=== PATIENT | female | born 1970 | race Caucasian/White ===

== ENCOUNTER 2017-05-20 15:30 | Emergency (ER) | payer MEDICARE, OTHER ==
[~2017-05-20] VITALS: Ht 165.1 cm; Wt 66.0 kg
[~2017-05-20 15:30] MED LIST: DEPA250T PO; LEXA5TAB PO; PHEN20S PO; REME15TA PO; [UNRECOGNIZED DRUG - OTHER]
[2017-05-20 15:51] VITALS: BP 138/71; PULSE 79; RESP 16; TEMP 99.2; O2SAT 98
[2017-05-20] MEDS ORDERED: CARB200T PO ×2 (17:14)
--- NOTE | 2017-05-20 17:14 | PD ---
HPI Chief Complaint: Skin Problem Time Seen by Provider: 17:06 Travel History International Travel<30 days: No Contact w/Intl Traveler<30days: No Traveled to known affect area: No History of Present Illness HPI Patient is a 46-year-old female presents emergency department for evaluation of left eye swelling. Minimal itching. No changes in vision. Patient does have a history of antiphospholipid syndrome and is on anticoagulation for that. Denies any sick contacts. Is on total disability and does not work. No fevers no nausea no vomiting no painful eye movements. Symptoms started this morning, mild, associated with swelling of the face. No alleviating or exacerbating factors. 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) Deep Vein Thrombosis: Yes (RT LEG 2 YRS AGO) Musculoskeletal: Yes (HAND CONDITION; 2o TO PHENOBARBITAL PER ) Seizures: Yes (SINCE CHILDHOOD, PROBABLY 2O TO INJURY) ?: Not LMP: 05/07/17 Tubal Ligation: Yes Past Surgical History Neurologic Surgery: Yes (4 YRS AGO REMOVED PART OF RT FRONTAL LOBE) Social History Alcohol Use: No Tobacco Use: No Substance Use: No Allergies-Medications (Allergen,Severity, Reaction): Coded Allergies: levetiracetam (Unverified Allergy, Unknown, 05/20/17) Uncoded Allergies: ANTIHISTAMINES (Adverse Reaction, Unknown, CANT MIX WITH OTHER MEDS, ) Reported Meds & Prescriptions Reported Meds & Active Scripts Active Ktlnqmuf-Jlvjtmreug-Awylbhxfs Opth Oint (Neomycin/Polymyxin/Bacitracin) 3.5 Gm Oint 1 Applic EACH EYE Q4H Clindamycin (Clindamycin HCl) 300 Mg Cap 300 Mg PO Q6H 10 Days Reported [Hemp Oil] 1 Applic TD BID Klonopin (Clonazepam) 2 Mg Tab 1.5 Mg PO HS Coumadin (Warfarin) 10 Mg Tab 10 Mg PO SUN,TUE,QAMAR Coumadin (Warfarin) 7.5 Mg Tab 7.5 Mg PO MO,WE,FR,SA Vimpat (Lacosamide) 200 Mg Tab 200 Mg PO BID Carbamazepine 200 Mg Tab 100 Mg PO DAILY Carbamazepine 200 Mg Tab 200 Mg PO BID Review of Systems Except as stated in HPI: all other systems reviewed are Neg Physical Exam Narrative GENERAL: Well-nourished, well-developed patient. Patient appears well and nontoxic. SKIN: Focused skin assessment warm/dry. HEAD: Normocephalic. EYES: No scleral icterus. There is some injection of the palpebral conjunctiva on the left. None on the right., Sclerae white. Extra movements are intact and nonpainful. Minimal cellulitis overlying the maxilla. No abscess. NECK: Supple, trachea midline. No JVD or lymphadenopathy. CARDIOVASCULAR: Regular rate and rhythm without murmurs, gallops, or rubs. RESPIRATORY: Breath sounds equal bilaterally. No accessory muscle use. GASTROINTESTINAL: Abdomen soft, non-tender, nondistended. MUSCULOSKELETAL: No cyanosis, or edema. BACK: Nontender without obvious deformity. No CVA tenderness. Data Data Last Documented VS Vital Signs Date Time Temp Pulse Resp B/P (MAP) Pulse Ox O2 Delivery O2 Flow Rate FiO2 05/20/17 17:30 70 14 125/75 (92) 98 Room Air 05/20/17 15:51 99.2 MDM Medical Decision Making Medical Screen Exam Complete: Yes Emergency Medical Condition: Yes Differential Diagnosis Preseptal cellulitis, post-septal cellulitis highly unlikely, conjunctivitis. Narrative Course Patient roomed in emergency department, reassured, recommended topical antibiotics as well as by mouth antibiotics. Ultimately I did discuss with the pharmacist at [facility] and the patient was placed on Polytrim antibiotics as well as clindamycin. Initially I had written her for a salve with hydrocortisone and this was corrected however was not in stock so placed on Polytrim pharmacist after discussion with me. Discussed signs symptoms that should prompt emergent return to the ER, symptomatic management. Follow-up with primary care physician. Diagnosis Primary Impression: Conjunctivitis Additional Impression: Preseptal cellulitis of left eye Med/Other Pt SpecificInfo: Prescription(s) given Scripts Gnyvhjxm-Jjyhttthbz-Obmxkapja Opth Oint (Vjehjziz-Ipjrvcfcru-Akosghsgj Opth Oint ) 3.5 Gm Oint 1 APPLIC EACH EYE Q4H for Infection, #3.5 GM 0 Refills Prov: Tejinder Oviedo MD 05/20/17 Clindamycin (Clindamycin) 300 Mg Cap 300 MG PO Q6H for Infection for 10 Days, #40 CAP 0 Refills Prov: Tejinder Oviedo MD 05/20/17 Disposition: 01 DISCHARGE HOME Condition: Stable Tejinder Oviedo MD May 20, 2017 17:14
[2017-05-20] MEDS ORDERED: CLIN1CAP6 PO (17:20)
[2017-05-20] MEDS ORDERED: BACIOIN25 EACH EYE (17:20)
[2017-05-20] MEDS ORDERED: VIMP200T PO (17:24)
[2017-05-20] MEDS ORDERED: COUM10TA PO (17:24)
[2017-05-20] MEDS ORDERED: COUM7.5T PO (17:24)
[2017-05-20] MEDS ORDERED: HEMP OIL TD (17:25)
[2017-05-20] MEDS ORDERED: KLON2TAB PO (17:25)
[2017-05-20 17:30] VITALS: BP 125/75; PULSE 70; RESP 14; O2SAT 98
[2017-05-20] MEDS ORDERED: [UNRECOGNIZED DRUG - CODE] EACH EYE (17:50)
== END 2017-05-20 17:45 | disposition home or self-care (01) ==
LOC: PHED 15:30
DX: H10.9 Unspecified conjunctivitis (principal); L03.213 Periorbital cellulitis; Z79.01 Long term (current) use of anticoagulants; Z86.59 Personal history of other mental and behavioral disorders; Z86.718 Personal history of other venous thrombosis and embolism; Z87.39 Personal history of other diseases of the musculoskeletal system and connective tissue; Z86.69 Personal history of other diseases of the nervous system and sense organs
CPT/HCPCS: 99284

== ENCOUNTER 2017-09-03 20:35 | Emergency (ER) | payer MEDICARE, OTHER ==
[~2017-09-03] VITALS: Ht 165.1 cm; Wt 65.0 kg
[~2017-09-03 20:35] MED LIST changes: +CARB200T PO; +CLIN300C5 PO; +COUM10TA PO; +COUM7.5T PO; -DEPA250T PO; +HEMP OIL TD; +KLON2TAB PO; -LEXA5TAB PO; -PHEN20S PO; -REME15TA PO; +VIMP200T PO; +[UNRECOGNIZED DRUG - CODE] EACH EYE; -[UNRECOGNIZED DRUG - OTHER]
[2017-09-03 20:42] VITALS: BP 121/69; PULSE 76; RESP 20; TEMP 98.3; O2SAT 97
[2017-09-03] MEDS ORDERED: CEPH-460 PO (21:24)
--- NOTE | 2017-09-03 21:24 | PD ---
HPI Chief Complaint: Lump, Cyst, Hernia Time Seen by Provider: 21:16 Travel History International Travel<30 days: No Contact w/Intl Traveler<30days: No Traveled to known affect area: No History of Present Illness HPI 47-year-old female with history of antiphospholipid syndrome on Coumadin, here for evaluation of a red spot on her right cheek. The patient first noticed a spot this morning. She squeezed it and it seemed to have gotten bigger. Pain is mild. She denies any visual disturbances. She reports a similar spot on her left cheek for which she was given an antibiotic. She has not had any fevers. PFSH Past Medical History Anxiety: Yes Deep Vein Thrombosis: Yes Musculoskeletal: Yes (HAND CONDITION; 2o TO PHENOBARBITAL PER ) Seizures: Yes (SINCE CHILDHOOD, PROBABLY SECONDARY TO INJURY) ?: Not LMP: 09/01/16 Tubal Ligation: Yes Past Surgical History Neurologic Surgery: Yes (16 YRS AGO REMOVED PART OF RT FRONTAL LOBE) Social History Alcohol Use: No Tobacco Use: No Substance Use: No Allergies-Medications (Allergen,Severity, Reaction): Coded Allergies: levetiracetam (Unverified Allergy, Unknown, 09/03/17) Uncoded Allergies: ANTIHISTAMINES (Adverse Reaction, Unknown, CANT MIX WITH OTHER MEDS, ) Reported Meds & Prescriptions Reported Meds & Active Scripts Active Reported Klonopin (Clonazepam) 2 Mg Tab 1.5 Mg PO HS Coumadin (Warfarin) 10 Mg Tab 10 Mg PO SUN,TUE,QAMAR Coumadin (Warfarin) 7.5 Mg Tab 7.5 Mg PO MO,WE,FR,SA Vimpat (Lacosamide) 200 Mg Tab 200 Mg PO BID Carbamazepine 200 Mg Tab 100 Mg PO DAILY Carbamazepine 200 Mg Tab 200 Mg PO BID Review of Systems Except as stated in HPI: all other systems reviewed are Neg Physical Exam Narrative GENERAL: Well-developed, well-nourished, comfortable, no apparent distress. SKIN: Focused skin assessment warm/dry. Right cheek with a small pustule with mild surrounding erythema. No fluctuance. No induration. No red streaks. No crepitus. HEAD: Atraumatic. Normocephalic. EYES: Pupils equal, round, 3 mm, reactive to light. EOMI. No proptosis. No scleral icterus. No injection or drainage. ENT: Mucous membranes pink and moist. Bilateral tympanic membrane and external auditory canals are normal. NECK: Trachea midline. No JVD. No nuchal rigidity. CARDIOVASCULAR: Regular rate and rhythm. RESPIRATORY: No accessory muscle use. Clear to auscultation. Breath sounds equal bilaterally. MUSCULOSKELETAL: No obvious deformities. No clubbing. No cyanosis. No edema. NEUROLOGICAL: Awake and alert. No obvious cranial nerve deficits. Motor grossly within normal limits. Normal speech. PSYCHIATRIC: Appropriate mood and affect; insight and judgment normal. Data Data Last Documented VS Vital Signs Date Time Temp Pulse Resp B/P (MAP) Pulse Ox O2 Delivery O2 Flow Rate FiO2 09/03/17 20:42 98.3 76 20 121/69 (86) 97 MDM Medical Decision Making Medical Screen Exam Complete: Yes Emergency Medical Condition: Yes Differential Diagnosis Cellulitis, pimple, insect bite Narrative Course Vital signs are within normal limits. The patient has what appears to be a pimple with mild surrounding cellulitis to her right cheek. This may have been an insect bite. Plan at this time is to start her on Keflex and have her follow-up with her primary care physician this week. She was informed on when to return to the emergency department patient verbalizes understanding and agreement with plan. Diagnosis Primary Impression: Cellulitis of right external cheek Referrals: Primary Care Physician 3 days Additional Instructions: Take antibiotic as prescribed. Follow-up with your primary care physician this week. Return to the emergency department for worsening symptoms or any other concerns. Scripts Cephalexin (Keflex) 500 Mg Cap 500 MG PO Q8H for Infection, #30 CAP 0 Refills Prov: Adryan Howard MD 09/03/17 Disposition: 01 DISCHARGE HOME Condition: Stable Adryan Howard MD Sep 03, 2017 21:24
== END 2017-09-03 21:38 | disposition home or self-care (01) ==
LOC: PHEFT 20:35
DX: L03.211 Cellulitis of face (principal); D68.61 Antiphospholipid syndrome; F41.9 Anxiety disorder, unspecified; Z79.01 Long term (current) use of anticoagulants; Z86.718 Personal history of other venous thrombosis and embolism
CPT/HCPCS: 99283